=== PATIENT | male | born 1975 | race Caucasian/White ===

== ENCOUNTER 2021-12-12 17:07 | Inpatient (IN) | payer OTHER, SELFPAY ==
--- NOTE | ~2021-12-12 | CT_ITS ---
EXAMINATION: CT abdomen pelvis w con DATE: 12/12/2021 18:20 INDICATION: Right upper quadrant pain TECHNIQUE: Computed tomography (CT) of the abdomen and pelvis was performed with 75 mL Omnipaque 300 intravenous contrast. Automated exposure control and iterative reconstruction technique were employed . The dose-length product was 837.96 mGy-cm. COMPARISON: None FINDINGS: Lower thorax: Calcified granulomas. Bibasilar atelectasis. Large hiatal hernia containing approximate ly half of the stomach. Liver: Enlarged low-density liver. Biliary/Gallbladder: Gallbladder is normal. No bile duct dilation. Pancreas: No mass or duct dilation. Spleen: Normal. Adrenals:No mass. Kidneys: Subcentimeter left upper pole hypodensity, too small to characterize but most likely represe nts a cyst. No other masses. No calcifications or hydronephrosis. GI tract: No small or large bowel dilation. The appendix is dilated with surrounding inflammatory jazlyn nge. Scattered diverticuli without evidence of diverticulitis. Mesentery/Peritoneum: No ascites, mass, or free air. Retroperitoneum: No mass. Pelvis: Bladder wall thickening likely due to chronic outlet obstruction from prostatomegaly. Soft Tissues: Soft tissues and body wall unremarkable. Bones: No acute osseous finding. IMPRESSION: Acute appendicitis. Hepatomegaly with steatosis. Reviewed, dictated and finalized at location K.
[2021-12-12 17:11] VITALS: BP 139/95; PULSE 113; RESP 16; TEMP 36.9; O2SAT 100
--- NOTE | 2021-12-12 17:27 | ED.ABDPAIN ---
HPI - Abdominal Pain General Chief Complaint: Abdominal Pain Stated Complaint: possible appy Time Seen by Provider: 12/12/21 17:20 Source: patient Mode of arrival: ambulatory Limitations: no limitations History of Present Illness HPI narrative: 46 years old white male, right lower quadrant pain, 3 days ago, intermittent, worse with activity, better laying still, associated with slight nausea, he denies any fever, chills, vomiting, diarrhea, constipation, urinary symptoms, history of abdominal hernia repair, hypertension, hyperlipidemia, patient does not smoke or drink or uses drugs. Related Data Allergies Allergy/AdvReac Type Severity Reaction Status Date / Time No Known Allergies Allergy Verified 12/12/21 17:32 Review of Systems Review of Systems: All systems reviewed & are unremarkable except as noted in HPI and below Exam Narrative: General appearance: Well-developed, well-nourished Skin: Normal color Head: Normocephalic, nontraumatic Eyes: Clear conjunctiva ENT: Oropharynx normal, ears normal, nose normal Neck: Supple, nontender Chest and respiratory: Airway patent, no respiratory distress, no accessory muscle use Heart: Regular rate/rhythm Abdomen: Soft, right lower quadrant severe tenderness, guarding, rebound, no organomegaly, quiet bowel sounds Vascular: Normal peripheral pulses, normal capillary refill. Musculoskeletal: Normal range of motion, nontender back Neurologic: Alert and oriented ?3, [place] is normal as tested, no gross motor deficit Course Course Emergency Course: Work-up showed acute appendicitis, patient received IV fluid normal saline 1 L, Dilaudid 25 mg IV, Zofran 4 mg IV, Zosyn 3.375 mg IV prior to admission Consultations Consultation #1: Dr. Dick Admit to hospitalist Date: 12/12/21 Time: 19:29 Vital Signs Vital signs: Vital Signs Temperature 36.9 C 12/12/21 17:11 Pulse Rate 113 H 12/12/21 17:11 Respiratory Rate 16 12/12/21 17:11 Blood Pressure 139/95 H 12/12/21 17:11 Pulse Oximetry 100 12/12/21 17:11 Oxygen Delivery Room Air 12/12/21 17:11 Temperature 36.9 C 12/12/21 17:11 Pulse Rate 113 H 12/12/21 17:11 Respiratory Rate 16 12/12/21 17:11 Blood Pressure 139/95 H 12/12/21 17:11 Pulse Oximetry 100 12/12/21 17:11 Oxygen Delivery Room Air 12/12/21 17:11 MDM - Abdominal Pain Differential Diagnosis Differential diagnosis: Likely abdominal pain, acute appendicitis, calculus of kidney, constipation and diverticulitis Lab Data Result diagrams: 12/12/21 17:46 12/12/21 17:46 Labs: Lab Results 12/12/21 12/12/21 12/12/21 Range/Units 17:46 17:46 18:51 WBC 9.9 (4.5-10.0) K/mm3 RBC 5.31 (4.6-6.20) M/mm3 Hgb 15.9 (14.0-18.0) g/dL Hct 47.0 (42.0-52.0) % MCV 88.5 (80-100) fl MCH 29.9 (26-34) pg MCHC 33.8 (32-36) g/dl RDW 12.7 (11.5-14.5) % Plt Count 306 (150-375) k/mm3 MPV 9.2 (7.4-10.4) fl Immature Gran % (Auto) 0.4 (0-0.5) % Neut % (Auto) 69.9 (45.5-73.1) % Lymph % (Auto) 17.8 L (18.3-44.2) % [place] % (Auto) 9.9 H (2.6-8.5) % Eos % (Auto) 1.6 (0-4.4) % Baso % (Auto) 0.4 (0.2-1.2) % Lymph # (Auto) 1.75 (0.9-3.2) K/mm3 [place] # (Auto) 1.0 H (0.1-0.6) K/mm3 Eos # (Auto) 0.2 (0-0.3) K/mm3 Baso # (Auto) 0.0 (0.0-0.1) K/mm3 Abs Immat Gran (auto) 0.04 H (0.00-0.031) K/mm3 Absolute Neuts (auto) 6.9 H (1.3-6.7) K/mm3 Absolute Nucleated RBC 0.0 (0.0-0.012) K/mm3 Nucleated RBC % 0.0 (0.0-0.2) % Sodium 138 (137-145) mmol/L Potassium 3.8 (3.4-5.0) mmol/L Chloride 104 (98-107) mmol/L Carbon Dioxide 25 (22-30) mmol
[2021-12-12] MEDS: ONDANSETRON INJ 4 MG/2 ML VIAL IV PUSH (17:49)
[2021-12-12] MEDS: HYDROmorphone HCL INJ (*CRX) 1 MG/ML SYR 0.5 MG IV PUSH ×2 (17:49→19:11)
[2021-12-12] MEDS: SODIUM CHLORIDE 0.9% IV 1,000 ML 999 ML IV CONT (17:49)
[2021-12-12 17:52] LABS: Basophils Percent Auto 0.4 % (0.2-1.2); Eosinophils Absolute Auto 0.2 K/mm3 (0-0.3); Eosinophils Percent Auto 1.6 % (0-4.4); Hemoglobin 15.9 g/dL (14.0-18.0); Immature Granulocyte Absolute 0.04 K/mm3 (0.00-0.031); Immature Granulocyte Percent A 0.4 % (0-0.5); Lymphocytes Absolute Auto 1.75 K/mm3 (0.9-3.2); Lymphocytes Percent Auto 17.8 % (18.3-44.2); Mean Corpuscular HGB Conc 33.8 g/dl (32-36); Mean Corpuscular Hemoglobin 29.9 pg (26-34); Mean Corpuscular Volume 88.5 fl (80-100); Mean Platelet Volume 9.2 fl (7.4-10.4); Monocytes Percent Auto 9.9 % (2.6-8.5); Neutrophils Absolute Auto 6.9 K/mm3 (1.3-6.7); Neutrophils Percent Auto 69.9 % (45.5-73.1); Platelet Count Result 306 k/mm3 (150-375); Red Blood Count 5.31 M/mm3 (4.6-6.20); Red Cell Distribution Width 12.7 % (11.5-14.5); White Blood Count 9.9 K/mm3 (4.5-10.0)
[2021-12-12 18:05] LABS: Alanine Aminotransferase 28 U/L (6-50); Albumin Level 4.8 g/dL (3.5-5.1); Alkaline Phosphatase 53 U/L (38-126); Anion Gap 9 mmol/L (8-16); Aspartate Amino Transferase 24 U/L (17-59); Bilirubin,Total 0.7 mg/dL (0.2-1.3); Blood Urea Nitrogen 15 mg/dL (9-20); Calcium 9.3 mg/dL (8.4-10.2); Carbon Dioxide 25 mmol/L (22-30); Chloride 104 mmol/L (98-107); Estimated CRCL calculation 78 ml/min; Estimated Glomerular Filt Rate 55; Glucose 96 mg/dL (65-110); Lipase 57 U/L (23-300); Potassium 3.8 mmol/L (3.4-5.0); Sodium 138 mmol/L (137-145)
[2021-12-12 19:13] LABS: Appearance Urine Clear (Clear); Bilirubin Urine Negative (Negative); Blood Urine Negative (Negative); Color Urine Yellow (Yellow); Glucose Urine UA Negative (Negative); Ketones Urine Negative (Negative); Leukocyte Esterase Ur Negative LEU/UL (Negative); Nitrate Urine Negative (Negative); Protein Urine Negative (Negative); Specific Grav Ur 1.015 (1.001-1.035); Urobilinogen Urine 0.2 mg/dL (<2.0); pH Urine 5.5 (5.0-9.0)
[2021-12-12 19:14] LABS: Add Urine Microscopic? NO
[2021-12-12 19:34] LABS: SARS-CoV-2 RNA PCR Negative
--- NOTE | 2021-12-12 20:04 | PM.IMHP ---
H&P: HPI History of Present Illness Date/Time: 12/12/21 20:04 Chief Complaint: Right lower quadrant pain Narrative: This is a 46-year-old male with past medical history significant for dyslipidemia, gout, seasonal allergies. Patient comes to the emergency room due to abdominal pain that started roughly 3 days prior pain was initially localized to the epigastric area to later localized to the right lower quadrant area, patient has some chills, no nausea, no vomiting, no diarrhea, has had constipation for which he went to the urgent care center and from there he was told to come to the emergency room. Patient has been in his usual state of health up until this. Preliminary workup in the emergency room was significant for CT of abdomen and pelvis with acute appendicitis. Patient has been admitted for further evaluation, management and treatment. Review of Systems Review of Systems: Right lower quadrant pain, chills, constipation. Constitutional: Constitutional: Reports other (Chills) Eyes: Eyes: Denies change in vision ENT: Denies dysphagia, Denies vertigo, Denies dizziness, Denies otalgia, Denies nasal congestion, Denies nasal discharge, Denies nasal obstruction and Denies odynophagia Cardiovascular: Cardiovascular: Denies chest pain Respiratory: Respiratory: Denies change in phlegm color, Denies chest congestion, Denies cough and Denies excessive phlegm production Gastrointestinal: Gastrointestinal: Reports abdominal pain, Reports constipation, Denies dyspepsia, Denies heartburn, Denies diarrhea, Denies nausea and Denies vomiting Genitourinary: Genitourinary: Denies dysuria Musculoskeletal: Musculoskeletal: Denies myalgias, Denies arthralgias, Denies joint swelling and Denies muscle cramps Integumentary/Breasts: Skin/Breast: Denies rash Neurologic: Denies focal weakness and Denies Sensory deficit (Neuro) Endocrine: Endocrine: Denies cold intolerance, Denies fatigue, Denies heat intolerance, Denies polyphagia, Denies polydipsia and Denies palpitations Hematologic/Lymphatic: Hematologic/Lymphatic: Reports no additional hematologic/lymphatic complaints and Reports as per HPI Allergic/Immunologic: Allergic/Immunologic: Reports no additional allergic/immunologic complaints and Reports as per HPI [facility] Family History Family History (Updated 12/12/21 @ 21:56 by Idania Rodriguez RN) Grandparent Acute myocardial infarction Father Hypertension Mother Hypertension Social History Social History Smoking status: Never smoker Alcohol intake: never Substance use: never Spiritual care concerns: No Meds Home Medications and Allergies Home Medications Medication Instructions Recorded Confirmed Type allopurinol 300 mg tablet 300 mg PO QPM 12/12/21 12/12/21 History cetirizine 5 mg-pseudoephedrine ER 5 - 120 tablet PO BID PRN Allergy 12/12/21 12/12/21 History 120 mg tablet,extended Symptoms release,12hr (Zyrtec-D) fenofibrate 160 mg tablet 160 mg PO QPM 12/12/21 12/12/21 History metoprolol succinate 50 mg 50 mg PO QPM 12/12/21 12/12/21 History tablet,extended release 24 hr Allergies Allergy/AdvReac Type Severity Reaction Status Date / Time No Known Allergies Allergy Verified 12/12/21 17:32 Vital Signs Vital Signs - 24 hr 12/12/21 17:11 Temperature 98.5 F Pulse Rate 113 H Respiratory Rate 16 Blood Pressure 139/95 H Pulse Oximetry 100 Oxygen Delivery Room Air Exam Const: General: comfortable, no acute distress, well developed, alert and awake Nutritional Appearance: average body habitus Orientation/consciousness: patient oriented x3 HENMT: Head: normal to inspection, normocephalic and atraumatic Ears: hearing grossly normal bilaterally Face and sinus: normal facial exam Eyes: General: appearance normal, both eyes and all related structures Pupils: Equal, round and reactive pupils present EOM: EOMs intact bilaterally Nec
[2021-12-12 20:40] VITALS: BP 143/99; PULSE 103; RESP 20; O2SAT 98
--- NOTE | 2021-12-12 21:47 | ADMGEN ---
This patient, Timothy Shah, was admitted to Medical Room 347-. Patient/family oriented to hospital policies and general routines including ID bracelet, bed and alarms, visiting hours, pain management, procedures, bathroom and other care routines, personal items, smoking policy, room service/diet, and visiting hours. Information on how to activate the Rapid Response Team has been discussed. Patient/Family are encouraged to report perceived risks to care and to ask questions if they do not understand what they are told or what they should do.
[2021-12-12 22:16] VITALS: BP 136/81; PULSE 99; RESP 18; TEMP 36.3; O2SAT 98
[2021-12-12] MEDS: LACTATED RINGERS 1,000 ML 150 ML IV CONT (22:39)
[2021-12-13] VITALS (14 sets, daily range): BP systolic 118–140; BP diastolic 65–88; PULSE 72–99; RESP 13–20; TEMP 36–36.9; O2SAT 93–100
[2021-12-13] MEDS: HYDROmorphone HCL INJ (*CRX) 1 MG/ML SYR 0.5 MG IV PUSH (04:49)
[2021-12-13 05:31] LABS: Basophils Percent Auto 0.5 % (0.2-1.2); Eosinophils Absolute Auto 0.2 K/mm3 (0-0.3); Eosinophils Percent Auto 3.6 % (0-4.4); Hematocrit 40.5 % (42.0-52.0); Hemoglobin 13.9 g/dL (14.0-18.0); Immature Granulocyte Absolute 0.02 K/mm3 (0.00-0.031); Immature Granulocyte Percent A 0.4 % (0-0.5); Lymphocytes Absolute Auto 1.27 K/mm3 (0.9-3.2); Lymphocytes Percent Auto 22.8 % (18.3-44.2); Mean Corpuscular HGB Conc 34.3 g/dl (32-36); Mean Corpuscular Hemoglobin 30.8 pg (26-34); Mean Corpuscular Volume 89.6 fl (80-100); Monocytes Absolute Auto 0.6 K/mm3 (0.1-0.6); Monocytes Percent Auto 11.3 % (2.6-8.5); Neutrophils Absolute Auto 3.4 K/mm3 (1.3-6.7); Neutrophils Percent Auto 61.4 % (45.5-73.1); Platelet Count Result 232 k/mm3 (150-375); Red Blood Count 4.52 M/mm3 (4.6-6.20); Red Cell Distribution Width 12.6 % (11.5-14.5); White Blood Count 5.6 K/mm3 (4.5-10.0)
[2021-12-13] MEDS: LACTATED RINGERS 1,000 ML 150 ML IV CONT ×2 (05:32→08:53)
[2021-12-13 05:41] LABS: Anion Gap 8 mmol/L (8-16); Blood Urea Nitrogen 14 mg/dL (9-20); Calcium 8.5 mg/dL (8.4-10.2); Carbon Dioxide 25 mmol/L (22-30); Chloride 106 mmol/L (98-107); Estimated CRCL calculation 73 ml/min; Estimated Glomerular Filt Rate 50; Glucose 100 mg/dL (65-110); Potassium 4.1 mmol/L (3.4-5.0); Sodium 139 mmol/L (137-145)
[2021-12-13] MEDS: ONDANSETRON INJ 4 MG/2 ML VIAL IV PUSH ×3 (06:32→21:47)
[2021-12-13] MEDS: HYDROmorphone HCL INJ (*CRX) 1 MG/ML SYR IV PUSH (08:53)
--- NOTE | 2021-12-13 09:53 | PM.CNGS ---
Assessment and Plan Assessment and plan (1) Acute appendicitis: Code(s): K35.80 - Unspecified acute appendicitis Status: Acute Assessment and Plan: CT scan reviewed and discussed with the patient in detail. There is evidence of acute appendicitis without signs of perforation. WBC normal and he is afebrile. This is the second time he is being treated for appendicitis. Treatment options were discussed including proceeding with a laparoscopic appendectomy, possible open, by Dr. Dick under general anesthesia, versus trying conservative treatment with antibiotics and close monitoring in the hospital. Risks and benefits of both were discussed by myself and Dr. Dick this morning. The patient would like to proceed with surgery. Description of the procedure, risks, benefits, expected outcomes, and expected recovery were discussed with the patient in detail. All questions were answered. We will keep him NPO for now and to try adding him onto the surgery schedule as soon as possible. Continue IV Zosyn, IV fluids, analgesics, and antiemetics. (2) Renal insufficiency: Code(s): N28.9 - Disorder of kidney and ureter, unspecified Status: Acute Assessment and Plan: Creatinine 1.5 today. Continue IV fluids and management per Hospitalist. (3) Hepatic steatosis: Code(s): K76.0 - Fatty (change of) liver, not elsewhere classified Status: Acute Assessment and Plan: Incidental finding on CT, which was discussed with the patient. F/u with PCP. (4) Hiatal hernia: Code(s): K44.9 - Diaphragmatic hernia without obstruction or gangrene Status: Acute Assessment and Plan: Incidentally noted. Patient aware of his hiatal hernia, asymptomatic. (5) Enlarged prostate: Code(s): N40.0 - Benign prostatic hyperplasia without lower urinary tract symptoms Status: Acute Assessment and Plan: Discussed CT findings. F/u with PCP. (6) Dyslipidemia: Code(s): E78.5 - Hyperlipidemia, unspecified Status: Acute Additional Plan I have discussed the patient's case and plan of care with Dr. Dick. Thank you for allowing us to see the patient in consultation and we will continue to follow along with you. History of Present Illness Consult details Consult date: 12/13/21 Reason for consult: other (Acute appendicitis) Requesting physician: Tano Lai MD Narrative: This is a 46-year-old male who presented to the emergency department with complaints of right lower quadrant abdominal pain. He reports his abdominal pain started Saturday afternoon, 3 days ago. He initially thought he was constipated and took laxatives. He had multiple bowel movements without relief in his pain. He does report some mild associated nausea, but no vomiting. The abdominal pain continued to worsen and he decided to come into the ER for further evaluation yesterday afternoon. CT scan of abdomen pelvis showed acute uncomplicated appendicitis. Labs showed a normal white blood cell count and creatinine 1.4. The patient was admitted to the hospitalist. He has been made NPO, started on IV Zosyn, IV fluids, and analgesics. Our service has been consulted for the surgical evaluation of acute appendicitis. The patient is dosing on the medical floor. He reports feeling more nauseous this morning, but still no vomiting. He has been afebrile. His abdominal pain does improve with the IV Dilaudid, but it remains persistent. No other complaints at this time. He has a history of being treated with antibiotics for appendicitis years ago. He also reports having a colonoscopy in the past that was reportedly normal other than findings of hemorrhoids. Review of Systems Review of Systems: All systems reviewed & are unremarkable except as noted in HPI and below Constitutional: Constitutional: Reports as per HPI, Denies chills, Denies fatigue and Denies fever(s) Eyes: Eyes: Reports no additional eye complaints
--- NOTE | 2021-12-13 10:15 | PM.IMPN ---
Progress Note: A&P Assessment and Plan (1) Acute appendicitis: Code(s): K35.80 - Unspecified acute appendicitis Status: Acute (2) Gout: Code(s): M10.9 - Gout, unspecified Status: Acute (3) Dyslipidemia: Code(s): E78.5 - Hyperlipidemia, unspecified Status: Acute (4) Enlarged prostate: Code(s): N40.0 - Benign prostatic hyperplasia without lower urinary tract symptoms Status: Acute (5) Hiatal hernia: Code(s): K44.9 - Diaphragmatic hernia without obstruction or gangrene Status: Acute (6) Hepatic steatosis: Code(s): K76.0 - Fatty (change of) liver, not elsewhere classified Status: Acute (7) Renal insufficiency: Code(s): N28.9 - Disorder of kidney and ureter, unspecified Status: Acute Plan Patient presents emergency room with complaints of right lower quadrant pain that was intermittent began 3 days prior to admission and found to have acute appendicitis. The pain was worse with activity and associated with slight nausea. White count was normal. No fevers. Creatinine elevated 1.4. CT of the abdomen pelvis showed acute appendicitis, prostatomegaly, hepatic steatosis with hepatomegaly and large hiatal hernia. Patient was started on Zosyn and IV fluids. Acetaminophen and Dilaudid available for pain. Zofran available for nausea. General surgery has been consulted. Will decrease IV fluid rate. Will check PSA. Add Protonix. Patient is deciding if he wants to proceed with surgery or to try a trial of IV antibiotics. Will check renal ultrasound and urine eosinophils. Check lipid panel in the morning. Will decrease his metoprolol and resume that is evening. Advanced to home dose as blood pressure and heart rate tolerate. DVT Prophylaxis - SCDs Code Status - Full Subjective Date/time seen: 12/13/21 10:15 Interval history: 46yo male with gout and dyslipidemia here for abdominal pain and found to have acute appendicitis. patient slept off and on last night. Abdominal pain much better. Abdominal pain seems to be worse with. Was nauseous this morning requiring medications. He denies any chest pain, shortness of breath or cough. No vomiting. He has a history of acute appendicitis treated with IV antibiotics in the past. He has had a history of abdominal hernia repair mesh place. No family history of prostate cancer. He does have occasional slow stream. Exam Narrative: AF 98.4 118/79 18 97% ra Gen - NARD Chest - CTA bilaterally, nml RR CV - RRR S1/S2 Abd - soft. Nondistended. Positive bowel sounds. He has referred pain but no rebound. Ext - No pedal edema Neuro - Alert and oriented. Nonfocal exam. Psych - Nml mood and affect Skin - Warm and dry Objective Data Vital Signs Vital Signs: Vital Signs - 24 hr 12/12/21 17:11 12/12/21 20:40 12/12/21 21:57 Temperature 98.5 F Pulse Rate 113 H 103 H Respiratory Rate 16 20 Blood Pressure 139/95 H 143/99 H Pulse Oximetry 100 98 Oxygen Delivery Room Air Room Air 12/12/21 22:16 12/13/21 04:39 12/13/21 08:25 Temperature 97.4 F L 97.6 F 98.4 F Pulse Rate 99 79 79 Respiratory Rate 18 16 18 Blood Pressure 136/81 126/70 118/79 Pulse Oximetry 98 97 97 Oxygen Delivery Intake/Output Intake/Output: Intake & Output 12/10/21 12/11/21 12/12/21 12/13/21 23:59 23:59 23:59 23:59 Intake Total 1050 2600 Balance 1050 2600 Meds/Results Medications: Active Medications Generic Name Dose Route Start Last Admin Trade Name Freq PRN Reason Stop Dose Admin Hydromorphone HCl 0.5 mg 12/12/21 21:21 12/13/21 04:49 Hydromorphone Hcl Inj (*Crx) 1 Mg/Ml Syr IV PUSH 0.5 mg Q3H PRN Administration Pain Rated 4-6 Hydromorphone HCl 1 mg 12/12/21 21:20 12/13/21 08:53 Hydromorphone Hcl Inj (*Crx) 1 Mg/Ml Syr IV PUSH 1 mg Q3H PRN Administration Pain Rated 7-10 Piperacillin/Tazobactam/Dextrose 3.375 gm in 50 mls @ 100 mls/hr 05
[2021-12-13] MEDS: PANTOPRAZOLE SODIUM IV 40 MG VIAL IV PUSH (13:03)
[2021-12-13 13:22] LABS: Eosinophil Urine None Seen % (None Seen)
--- NOTE | 2021-12-13 15:41 | WPDHPUPDATE1 ---
History and Physical Update Update Date/Time: 12/13/21 15:41 History and Physical has been reviewed, including an updated exam of the patient. There are NO changes in the patient's condition. Risks, benefits, and alternatives have been discussed and questions answered. Patient agrees to proceed with procedure.
[2021-12-13] MEDS: LACTATED RINGERS 1,000 ML 30 ML IV CONT ×3 (16:00→22:07)
--- NOTE | 2021-12-13 16:02 | WPDANESEPPF ---
Anes - Initial Pre Proc Eval Procedure: Operation Date: 12/13/21 16:00 Proposed Procedures p Laparoscopic Appendectomy - Jem Dick MD Date/Time: 12/13/21 16:02 Surgeon: Shaka Aguero MD Pre Op Diagnosis: Acute appendicitis Patient Data Age: 46 Gender: M Height: 1.88 m Weight: 109.09 kg Last Vital Signs Temp 36.4 C 12/13/21 15:14 Pulse 93 12/13/21 15:14 Resp 14 12/13/21 15:14 BP 137/74 12/13/21 15:14 Pulse Ox 93 12/13/21 15:14 O2 Del Method Room Air 12/13/21 15:14 Allergies Allergy/AdvReac Type Severity Reaction Status Date / Time No Known Allergies Allergy Verified 12/13/21 15:48 Home Medications Medication Instructions Recorded Confirmed Type allopurinol 300 mg tablet 300 mg PO QPM 12/12/21 12/12/21 History cetirizine 5 mg-pseudoephedrine ER 5 - 120 tablet PO BID PRN Allergy 12/12/21 12/12/21 History 120 mg tablet,extended Symptoms release,12hr (Zyrtec-D) fenofibrate 160 mg tablet 160 mg PO QPM 12/12/21 12/12/21 History metoprolol succinate 50 mg 50 mg PO QPM 12/12/21 12/12/21 History tablet,extended release 24 hr Laboratory Tests 12/12/21 12/12/21 12/12/21 17:46 17:46 18:51 WBC 9.9 K/mm3 K/mm3 (4.5-10.0) RBC 5.31 M/mm3 M/mm3 (4.6-6.20) Hgb 15.9 g/dL g/dL (14.0-18.0) Hct 47.0 % % (42.0-52.0) MCV 88.5 fl fl (80-100) MCH 29.9 pg pg (26-34) MCHC 33.8 g/dl g/dl (32-36) RDW 12.7 % % (11.5-14.5) Plt Count 306 k/mm3 k/mm3 (150-375) MPV 9.2 fl fl (7.4-10.4) Immature Gran % (Auto) 0.4 % % (0-0.5) Neut % (Auto) 69.9 % % (45.5-73.1) Lymph % (Auto) 17.8 % L % (18.3-44.2) [place] % (Auto) 9.9 % H % (2.6-8.5) Eos % (Auto) 1.6 % % (0-4.4) Baso % (Auto) 0.4 % % (0.2-1.2) Lymph # (Auto) 1.75 K/mm3 K/mm3 (0.9-3.2) [place] # (Auto) 1.0 K/mm3 H K/mm3 (0.1-0.6) Eos # (Auto) 0.2 K/mm3 K/mm3 (0-0.3) Baso # (Auto) 0.0 K/mm3 K/mm3 (0.0-0.1) Abs Immat Gran (auto) 0.04 K/mm3 H K/mm3 (0.00-0.031) Absolute Neuts (auto) 6.9 K/mm3 H K/mm3 (1.3-6.7) Absolute Nucleated RBC 0.0 K/mm3 K/mm3 (0.0-0.012) Nucleated RBC % 0.0 % % (0.0-0.2) Sodium 138 mmol/L mmol/L (137-145) Potassium 3.8 mmol/L mmol/L (3.4-5.0) Chloride 104 mmol/L mmol/L (98-107) Carbon Dioxide 25 mmol/L mmol/L (22-30) Anion Gap 9 mmol/L mmol/L (8-16) BUN 15 mg/dL mg/dL (9-20) Creatinine 1.40 mg/dL H mg/dL (0.7-1.3) Estim Creat Clear Calc 78 ml/min ml/min Estimated GFR 55 L (59 - ) Glucose 96 mg/dL mg/dL (65-110) Calcium 9.3 mg/dL mg/dL (8.4-10.2) Total Bilirubin 0.7 mg/dL mg/dL (0.2-1.3) AST 24 U/L U/L (17-59) ALT 28 U/L U/L (6-50) Alkaline Phosphatase 53 U/L U/L (38-126) Total Protein 8.0 g/dL g/dL (6.3-8.2) Albumin 4.8 g/dL g/dL (3.5-5.1) Lipase 57 U/L U/L (23-300) Urine Color Urine Appearance Urine pH Ur Specific [place] Urine Protein Urine Glucose (UA) Urine Ketones Ur Blood (Man) Urine Nitrate Urine Bilirubin Urine Urobilinogen Leukocyte Esterase Rfl Urine Eosinophils SARS-CoV-2 RNA (RT-PCR) Negative 12/12/21 12/13/21 12/13/21 19:00 05:19 05:19 WBC 5.6 K/mm3 K/mm3 (4.5-10.0) RBC 4.52 M/mm3 L M/mm3 (4.6-6.20) Hgb 13.9 g/dL L g/dL (14.0-18.0) Hct 40.5 % L % (42.0-52.0) MCV 89.6 fl fl (80-100) MCH 30.8 pg pg (26-34) MCHC 34.3 g/dl g/dl (32-36) RDW 12.6 % %
--- NOTE | 2021-12-13 16:56 | P.PNAN_ITS ---
Anes - Initial Pre Proc Eval Procedure: Operation Date: 12/13/21 16:00 Proposed Procedures p Laparoscopic Appendectomy - Jem Dick MD Date/Time: 12/13/21 16:56 Surgeon: Shaka Aguero MD Pre Op Diagnosis: Acute appendicitis Patient Data Age: 46 Gender: M Height: 1.88 m Weight: 109.09 kg Last Vital Signs Temp 36.4 C 12/13/21 15:14 Pulse 93 12/13/21 15:14 Resp 14 12/13/21 15:14 BP 137/74 12/13/21 15:14 Pulse Ox 93 12/13/21 15:14 O2 Del Method Room Air 12/13/21 15:14 Allergies Allergy/AdvReac Type Severity Reaction Status Date / Time No Known Allergies Allergy Verified 12/13/21 15:48 Home Medications Medication Instructions Recorded Confirmed Type allopurinol 300 mg tablet 300 mg PO QPM 12/12/21 12/12/21 History cetirizine 5 mg-pseudoephedrine ER 5 - 120 tablet PO BID PRN Allergy 12/12/21 12/12/21 History 120 mg tablet,extended Symptoms release,12hr (Zyrtec-D) fenofibrate 160 mg tablet 160 mg PO QPM 12/12/21 12/12/21 History metoprolol succinate 50 mg 50 mg PO QPM 12/12/21 12/12/21 History tablet,extended release 24 hr Laboratory Tests 12/12/21 12/12/21 12/12/21 17:46 17:46 18:51 WBC 9.9 K/mm3 K/mm3 (4.5-10.0) RBC 5.31 M/mm3 M/mm3 (4.6-6.20) Hgb 15.9 g/dL g/dL (14.0-18.0) Hct 47.0 % % (42.0-52.0) MCV 88.5 fl fl (80-100) MCH 29.9 pg pg (26-34) MCHC 33.8 g/dl g/dl (32-36) RDW 12.7 % % (11.5-14.5) Plt Count 306 k/mm3 k/mm3 (150-375) MPV 9.2 fl fl (7.4-10.4) Immature Gran % (Auto) 0.4 % % (0-0.5) Neut % (Auto) 69.9 % % (45.5-73.1) Lymph % (Auto) 17.8 % L % (18.3-44.2) [place] % (Auto) 9.9 % H % (2.6-8.5) Eos % (Auto) 1.6 % % (0-4.4) Baso % (Auto) 0.4 % % (0.2-1.2) Lymph # (Auto) 1.75 K/mm3 K/mm3 (0.9-3.2) [place] # (Auto) 1.0 K/mm3 H K/mm3 (0.1-0.6) Eos # (Auto) 0.2 K/mm3 K/mm3 (0-0.3) Baso # (Auto) 0.0 K/mm3 K/mm3 (0.0-0.1) Abs Immat Gran (auto) 0.04 K/mm3 H K/mm3 (0.00-0.031) Absolute Neuts (auto) 6.9 K/mm3 H K/mm3 (1.3-6.7) Absolute Nucleated RBC 0.0 K/mm3 K/mm3 (0.0-0.012) Nucleated RBC % 0.0 % % (0.0-0.2) Sodium 138 mmol/L mmol/L (137-145) Potassium 3.8 mmol/L mmol/L (3.4-5.0) Chloride 104 mmol/L mmol/L (98-107) Carbon Dioxide 25 mmol/L mmol/L (22-30) Anion Gap 9 mmol/L mmol/L (8-16) BUN 15 mg/dL mg/dL (9-20) Creatinine 1.40 mg/dL H mg/dL (0.7-1.3) Estim Creat Clear Calc 78 ml/min ml/min Estimated GFR 55 L (59 -
[2021-12-13] MEDS: LIDO 2%/EPINEPHRINE 1:100,000 20 ML VIAL INFILTRATE (20:04)
[2021-12-13] MEDS: fentaNYL CITRATE INJ (*CRX) 100 MCG/2 ML VIAL 25 MCG IV PUSH ×4 (21:21→21:42)
--- NOTE | 2021-12-13 21:22 | W.PM.PROC2 ---
Procedure Note - Detailed Date of Procedure 12/13/21 Pre-op Diagnosis Acute uncomplicated appendicitis Post-op Diagnosis Same Procedure Performed Laparoscopic appendectomy Surgeon Jem Dick MD Ict Project Manager Aura RODRIGUEZ. OR Altitude Chamber Technician Anesthesia General Description of Procedure The patient was seen again in the Holding Room. The risks, benefits, complications, treatment options, and expected outcomes were discussed with the patient and/or family. The possibilities of reaction to medication, pulmonary aspiration, perforation of viscus, bleeding, recurrent infection, finding a normal appendix, the need for additional procedures, failure to diagnose a condition, and creating a complication requiring transfusion or operation were discussed. There was concurrence with the proposed plan and informed consent was obtained. The site of surgery was properly noted/marked. The patient was taken to Operating Room, and a time out was preformed which identified this as the proper patient, and the procedure verified as laparoscopic appendectomy, possible open. The patient was placed in the supine position and general anesthesia was induced, along with placement of an orogastric tube, SCD hose, and a Norton catheter. The abdomen was prepped and draped in a sterile fashion. A 5 mm left subcostal incision was made and the peritoneal cavity was accessed using the Veress needle technique including a water drop test.. Once the abdomen was insufflated to 14 mmHg pressure a 5 mm XL trocar over the 0? 5 mm scope was carefully twisted into the abdomen via this small left subcostal incision site. The pneumoperitoneum was then established to steady pressure of 14 mm Hg. A 12 mm laparoscopic port was placed through a transverse suprapubic incision. An additional 5 mm cannula was then placed in the left lower quadrant of the abdomen at a level slightly below and to the left of the umbilicus, away from his previous 2 incisions near the umbilicus. this was done under direct vision with the laparoscoped in the left upper quadrant trocar.. A careful evaluation of the entire abdomen was carried out. With the patient and still the slightly head-up position I tried to look toward the head and evaluate the hiatal hernia. However, the left lobe of the liver could be seen but otherwise everything was obscured by a good amount of omentum. Therefore I chose not to maneuver any of the tissues in that area at this time. The patient was placed in Trendelenburg and left lateral decubitus position. The small intestines were retracted in the cephalad and left lateral direction away from the pelvis and right lower quadrant. The patient was found to have an enlarged and inflamed appendix that was extending into the right side of the Cecum and curled in nearly a retrocecal position. There was no evidence of perforation. At this point I carefully dissected around the appendix but could not get it to roll up in a position where we could place a stapler across the mesoappendix. Therefore, I did use some dissection with the Bovie on the Tia dissector and dissected the space between the appendiceal stump of the mesoappendix and spread this with the Tia. This created an opening in the mesoappendix at the base the appendix and then I was able to slide the thin arm of the [employer] stapler with a blue load across the base the appendix before dividing the mesoappendix. The appendix was then divided at its base using the 45 mm stapler with a 3.5 mm bowel wall load. Minimal appendiceal stump was left in place. The appendix was carefully further dissected And rotated inferiorly so that the mesoappendix was exposed.. Once it was free a 45 mm ethicon endogastroentestinal stapler with a vascular load was placed across the mesoappendix. This was fired and hemostasis was checked along the staple line and appeared to be adequate. Then another cartridge containing a vascular load was applied and the st
[2021-12-13] MEDS: HALOPERIDOL LACTATE 5 MG/ML VIAL 1 MG IV PUSH (22:02)
[2021-12-13] MEDS: SCOPOLAMINE 1.5 MG PATCH TRANSDERM (22:02)
[2021-12-13] MEDS: diphenhydrAMINE HCl INJ 50 MG/ML VIAL 25 MG IV PUSH (22:28)
--- NOTE | 2021-12-13 22:46 | PC.NURSE ---
pt returned to room 347 from PACU via bed.
[2021-12-13] MEDS: LACTATED RINGERS 1,000 ML 100 ML IV CONT (23:54)
[2021-12-14 00:35] VITALS: BP 122/76; PULSE 90; RESP 16; TEMP 36.5; O2SAT 97
[2021-12-14] MEDS: HYDROmorphone HCL INJ (*CRX) 1 MG/ML SYR 0.5 MG IV PUSH ×2 (00:51→03:52)
[2021-12-14] MEDS: ONDANSETRON INJ 4 MG/2 ML VIAL IV PUSH (00:51)
[2021-12-14 04:22] VITALS: BP 130/72; PULSE 90; RESP 18; TEMP 36.6; O2SAT 96
[2021-12-14 06:18] LABS: Basophils Percent Auto 0.2 % (0.2-1.2); Hematocrit 40.9 % (42.0-52.0); Hemoglobin 13.8 g/dL (14.0-18.0); Immature Granulocyte Absolute 0.01 K/mm3 (0.00-0.031); Immature Granulocyte Percent A 0.2 % (0-0.5); Lymphocytes Absolute Auto 0.44 K/mm3 (0.9-3.2); Lymphocytes Percent Auto 8.8 % (18.3-44.2); Mean Corpuscular HGB Conc 33.7 g/dl (32-36); Mean Corpuscular Hemoglobin 30.1 pg (26-34); Mean Corpuscular Volume 89.3 fl (80-100); Mean Platelet Volume 9.1 fl (7.4-10.4); Monocytes Absolute Auto 0.2 K/mm3 (0.1-0.6); Monocytes Percent Auto 3.8 % (2.6-8.5); Neutrophils Absolute Auto 4.4 K/mm3 (1.3-6.7); Platelet Count Result 284 k/mm3 (150-375); Red Blood Count 4.58 M/mm3 (4.6-6.20); Red Cell Distribution Width 12.2 % (11.5-14.5)
[2021-12-14 06:26] LABS: Anion Gap 7 mmol/L (8-16); Blood Urea Nitrogen 15 mg/dL (9-20); Calcium 8.9 mg/dL (8.4-10.2); Carbon Dioxide 25 mmol/L (22-30); Chloride 105 mmol/L (98-107); Cholesterol 164 mg/dL (0-200); Estimated CRCL calculation 78 ml/min; Estimated Glomerular Filt Rate 55; Glucose 137 mg/dL (65-110); HDL Direct 29 mg/dL; Potassium 4.3 mmol/L (3.4-5.0); Sodium 137 mmol/L (137-145); Triglycerides 189 mg/dL (<150)
[2021-12-14 06:37] LABS: LDL Cholesterol Direct 96 mg/dL
[2021-12-14 06:57] LABS: Prostate Specific Antigen 0.4 ng/mL (< OR = 4.0)
[2021-12-14 08:24] VITALS: BP 121/71; PULSE 88; RESP 20; TEMP 36.7; O2SAT 97
--- NOTE | 2021-12-14 09:43 | PM.PNGS ---
Progress Note: A&P Assessment and Plan (1) Acute appendicitis: Code(s): K35.80 - Unspecified acute appendicitis Status: Acute Assessment and Plan: Pt feels well and labs look good. Will foster getting pt diet advanced and then OK for discharge from surgical standpoint. discussed follow-up with patient. Will see him in 2 weeks in the office. 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 Therefore, he will send [place] paperwork to our office and we will keep him off until after his 1st postop visit with me in approximately 2 weeks. (2) Enlarged prostate: Code(s): N40.0 - Benign prostatic hyperplasia without lower urinary tract symptoms Status: Acute Assessment and Plan: See hospitalist documentation. PSA within normal limits noted this morning on labs. Additional Plan I put in for 8 pain pills to the patient's pharmacy, however he will try to take extra-strength Tylenol with breakfast and if it does well he may not even pick that up as his pain is only at 2-3/10 level right now. Subjective Subjective Date/Time Seen: 12/14/21 09:43 Post Op day: 1 (Doing well with reported pain at 2 -3/10) Review of Systems Review of Systems: All systems reviewed & are unremarkable except as noted in HPI and below Constitutional: Constitutional: Reports as per HPI, Denies chills and Denies fever(s) Cardiovascular: Cardiovascular: Denies chest pain and Denies dyspnea Respiratory: Respiratory: Reports no additional respiratory complaints and Denies dyspnea Gastrointestinal: Gastrointestinal: Reports as per HPI and Denies bloating Musculoskeletal: Musculoskeletal: Reports no additional musculoskeletal complaints Psychiatric: Psychiatric: Denies anxiety Exam Const: General: cooperative, comfortable, alert and awake Orientation/consciousness: patient oriented x3 HENMT: Head: normal to inspection Mouth: Yes moist mucous membranes Eyes: Sclera: sclerae normal Pupils: Equal, round and reactive pupils present Neck: Neck: normal visual inspection and no JVD Chest: Chest palpation & inspection: normal inspection of the chest Resp: Effort & Inspection: normal respiratory effort Auscultation: clear to auscultation bilaterally Cardio: Rate: regular rate GI: Inspection: normal to inspection and incision (All incisions clean and dry with surgical glue in place.) Auscultation: normal bowel sounds Neuro: General: patient oriented x3 Cranial nerves: Yes Equal, round and reactive pupils present Objective Data Vital Signs Vital Signs: Vital Signs - 24 hr 12/13/21 14:38 12/13/21 15:14 12/13/21 21:15 Temperature 36.6 C 36.4 C 36.0 C L Pulse Rate 77 93 99 Respiratory Rate 18 14 14 Blood Pressure 129/75 137/74 131/75 Pulse Oximetry 99 93 100 Oxygen Delivery Room Air Simple Face Mask Oxygen Flow Rate 8 12/13/21 21:30 12/13/21 21:45 12/13/21 22:00 Temperature Pulse Rate 79 77 80 Respiratory Rate 18 13 17 Blood Pressure 135/68 140/88 132/83 Pulse Oximetry 99 97 99 Oxygen Delivery Simple Face Mask Room Air Room Air Oxygen Flow Rate 8 12/13/21 22:15 12/13/21 22:30 12/13/21 22:50 Temperature 36.6 C Pulse Rate 72 90 90 Respiratory Rate 15 20 16 Blood Pressure 123/68 123/65 130/71 Pulse Oximetry 97 93 96 Oxygen Delivery Room Air Room Air Oxygen Flow Rate 12/13/21 23:05 12/13/21 23:35 12/14/21 00:35 Temperature 36.4 C 36.6 C 36.5 C Pulse Rate 90 99 90 Respiratory Rate 16 16 16 Blood Pressure 124/78 125/76 122/76 Pulse Oximetry 99 96 97 Oxygen Delivery Oxygen Flow Rate 12/14/21 04:22 12/13/21 23:58 12/14/21 08:24 Temperature 36.6 C 36.7 C Pulse Rate 90 88 Respiratory Rate 18 20 Blood Pressure 130/72 121/71 Pulse Oximetry 96 98 97 Oxygen Delivery Room Air Oxygen Flow Rate Intake/Output Intake/Output: Intake & Output 12/11/21 12/12/21 12/13/21 12/14/21 23:59 23:59 23:59 23:59 Intake Total 1050 5300 150 Output Tota
[2021-12-14] MEDS: ENOXAPARIN 40 MG/0.4 ML SYRINGE SUB-Q (09:53)
[2021-12-14] MEDS: PANTOPRAZOLE SODIUM IV 40 MG VIAL IV PUSH (09:53)
[2021-12-14] MEDS: ACETAMINOPHEN 500 MG TABLET 1000 MG PO (10:05)
--- NOTE | 2021-12-14 12:07 | PM.DS ---
DS: Admitting Diagnosis Discharge Date 12/14/21 Admitting Diagnosis Abdominal pain DS: Discharge Diagnosis Discharge Diagnosis (1) Acute appendicitis: Code(s): K35.80 - Unspecified acute appendicitis Status: Acute (2) Renal insufficiency: Code(s): N28.9 - Disorder of kidney and ureter, unspecified Status: Acute (3) Gout: Code(s): M10.9 - Gout, unspecified Status: Acute (4) Dyslipidemia: Code(s): E78.5 - Hyperlipidemia, unspecified Status: Acute (5) Enlarged prostate: Code(s): N40.0 - Benign prostatic hyperplasia without lower urinary tract symptoms Status: Acute (6) Hiatal hernia: Code(s): K44.9 - Diaphragmatic hernia without obstruction or gangrene Status: Acute (7) Hepatic steatosis: Code(s): K76.0 - Fatty (change of) liver, not elsewhere classified Status: Acute DS: Summary Hospital Course Reason for hospitalization: 46yo male with gout and dyslipidemia here for abdominal pain and found to have acute appendicitis. Please see H&P for details Hospital Course: Patient presented to the emergency room with complaints of right lower quadrant pain that was intermittent began 3 days prior to admission and found to have acute appendicitis. The pain was worse with activity and associated with slight nausea. White count was normal. No fevers. Creatinine elevated 1.4. CT of the abdomen pelvis showed acute appendicitis, prostatomegaly, hepatic steatosis with hepatomegaly and large hiatal hernia. He is aware of the hiatal hernia. Patient was started on Zosyn and IV fluids. Acetaminophen and Dilaudid were available for pain. Zofran was available for nausea. General surgery was consulted and options discussed. Patient decided to proceed with surgery and he underwent laparoscopic appendectomy on 12/13/2021. He tolerated the procedure well. Tolerating oral intake. Creatinine stable at 1.4. PSA was 0.4. Triglyceride 189, cholesterol 164, LDL 96 and HDL 29. Patient overall did well stated be discharged home on 12/14/2021. Status at Discharge Cognitive/behavioral status at discharge: Stable Time Spent with Patient Time attestation: Total time spent providing and/or coordinating discharge services: 34 minutes Time spent: Greater than 30 minutes Exam Narrative: AF 98.0 121/71 88 20 97% ra Gen - NARD Chest - CTA bilaterally, nml RR CV - RRR S1/S2 Abd - soft. Nondistended. Positive bowel sounds. Small incisions were clean, dry and intact. Ext - No pedal edema Psych - Nml mood and affect Skin - Warm and dry DS: Data Data Completed and Pending Pending studies at discharge: Pending at discharge 12/13/21 21:05 Surgical [PTH] Routine Labs on day of discharge: Labs from last 24 hours 12/14/21 12/14/21 12/13/21 05:22 05:22 12:02 WBC 5.0 RBC 4.58 L Hgb 13.8 L Hct 40.9 L MCV 89.3 MCH 30.1 MCHC 33.7 RDW 12.2 Plt Count 284 MPV 9.1 Immature Gran % (Auto) 0.2 Neut % (Auto) 87.0 H Lymph % (Auto) 8.8 L Roosevelt % (Auto) 3.8 Eos % (Auto) 0.0 Baso % (Auto) 0.2 Lymph # (Auto) 0.44 L Roosevelt # (Auto) 0.2 Eos # (Auto) 0.0 Baso # (Auto) 0.0 Abs Immat Gran (auto) 0.01 Absolute Neuts (auto) 4.4 Absolute Nucleated RBC 0.0 Nucleated RBC % 0.0 Sodium 137 Potassium 4.3 Chloride 105 Carbon Dioxide 25 Anion Gap 7 L BUN 15 Creatinine 1.40 H Estim Creat Clear Calc 78 Estimated GFR 55 L Glucose 137 H Calcium 8.9 Triglycerides 189 H Cholesterol 164 LDL Cholesterol Direct 96 HDL Direct 29 Prostate Specific Ag 0.4 Urine Eosinophils None seen Discharge Plan Discharge Attending physician on discharge: Benjamin Cruz Consulting providers: Jem Dick Discharging Clinician: Benjamin Cruz Anticipated Discharge Date/Time: 12/14/21 11:16 Patient Disposition: H
--- NOTE | 2021-12-21 07:30 | PC.NURSE ---
PAth of appendix shows acute appendix with perforation and acute serositis.Dr. Nancy diggs.
== END 2021-12-14 13:50 | disposition home or self-care (01) | DRG 343 ==
LOC: ANHED 19:31 → ANH3MED 21:01
PROVIDERS: Surgery; Admitting Provider Internal Medicine; Emergency Provider Emergency Medicine; Visit Provider Internal Medicine
PROC: 0DTJ4ZZ Resection of Appendix, Percutaneous Endoscopic Approach (ICD-10-PCS; CPT 44970; principal; 2021-12-13 16:00)
DX: K35.80 Unspecified acute appendicitis (principal); K76.0 Fatty (change of) liver, not elsewhere classified; Z20.822 Contact with and (suspected) exposure to COVID-19; K44.9 Diaphragmatic hernia without obstruction or gangrene; N28.9 Disorder of kidney and ureter, unspecified; M10.9 Gout, unspecified; E78.5 Hyperlipidemia, unspecified; I10 Essential (primary) hypertension; J44.9 Chronic obstructive pulmonary disease, unspecified; N40.0 Benign prostatic hyperplasia without lower urinary tract symptoms; J30.2 Other seasonal allergic rhinitis; Z79.899 Other long term (current) drug therapy
CPT/HCPCS: 36415; 74177; 80048; 80053; 80061; 81003; 83690; 84153; 85025; 85999; 88304; 96361; 96365; 96375; 96376; 99285; A9270; C9113; C9803; J0131; J0330; J1170; J1200; J1630; J1650; J2250; J2405; J2543; J2704; J2710; J3010; J7030; J7120; Q9967; U0003; U0005